=== PATIENT | female | born 1995 | race Caucasian/White ===

== ENCOUNTER 2023-05-21 05:54 | Day surgery (SDC) | payer OTHER ==
[2023-05-20 13:23] VITALS: BMI 33.3
[2023-05-20 14:05] LABS: Hemoglobin 11.4 g/dL (12.0-15.5); Mean Corpuscular HGB CONC 32.6 g/dL (32.0-36.0); Mean Corpuscular Volume 89.1 fl (81.6-98.3); Mean Platelet Volume 9.9 fl (7.4-10.4); Platelet Count 353 10x3/uL (150-450); RBC Distribution Width 13.5 % (11.5-14.5); Red Blood Cell (RBC) Count 3.93 10x6/uL (3.90-5.03); White Blood Cell (WBC) Count 7.2 10x3/uL (3.5-10.5)
[2023-05-21] MEDS ORDERED: CeleCOXIB 100 MG CAP ONE (06:14)
[2023-05-21] MEDS ORDERED: Methylergonovine 0.2 MG/ML VIAL ONE (06:37)
[2023-05-21] MEDS ORDERED: Misoprostol 200 MCG TAB ONE (06:37)
[2023-05-21] MEDS ORDERED: Tranexamic Acid 1,000 MG/10 ML VIAL ONE (06:37)
[2023-05-21] MEDS ORDERED: fentaNYL 50 mcg/mL 1 mL Vial ONE ×2 (06:54→07:43)
[2023-05-21] MEDS ORDERED: PROPOFOL 20 ML ONE (06:54)
[2023-05-21] MEDS ORDERED: Ondansetron PF 4 MG/2 ML Vial ONE (06:55)
[2023-05-21] MEDS ORDERED: Lidocaine 1% PF 5 ML VIAL ONE (06:55)
[2023-05-21] MEDS ORDERED: Dexamethasone 4 mg/ml Vial ONE (06:55)
[2023-05-21] MEDS ORDERED: Ketorolac Tromethamine 30 MG/ML VIAL ONE (06:55)
[2023-05-21] MEDS ORDERED: CEFAZOLIN 2 GM VIAL ONE (07:11)
[2023-05-21] MEDS ORDERED: Promethazine HCl 25 MG/ML VIAL ONE (07:22)
== END 2023-05-21 09:40 | disposition home or self-care (01) ==
LOC: CSHSDC 05:54
PROVIDERS: ATTEND Student in an Organized Health Care Education/Training Program
PROC: 10D17ZZ Extraction of Products of Conception, Retained, Via Natural or Artificial Opening (ICD-10-PCS; principal; 2023-05-21)
DX: O02.1 Missed abortion (principal); Z3A.01 Less than 8 weeks gestation of pregnancy
CPT/HCPCS: 85027; 86850; 86900; 86901; 88305; J1100; J1885; J2210; J2405; J2550; J2704; J3010